=== PATIENT | female | born 1990 | race Caucasian/White ===

== ENCOUNTER 2020-05-14 15:48 | Inpatient (IN) | payer OTHER ==
[~2020-05-14] VITALS: Ht 167.6 cm; Wt 114.8 kg
[~2020-05-14 15:48] MED LIST: BENTYL 20MG TAB20 MG PO; NORCO 5-325 TA1 EACH PO; REGLAN10 MG PO
[2020-05-14 16:49] LABS: HEMOGLOBIN 10.4 gm/dl (12.3-15.3); RED BLOOD COUNT 3.59 M/UL (4.00-5.10); WHITE BLOOD COUNT 9.3 K/UL (4.5-11.0)
[2020-05-14] MEDS ORDERED: PRENATAL VITAM1 EAC3 PO (16:58)
[2020-05-14] MEDS ORDERED: PHENERGAN 25 MG25 M1 PO (16:59)
[2020-05-14 17:07] LABS: BUN/CREATININE RATIO 19 (0-10)
[2020-05-15] MEDS ORDERED: HYDROCODON-ACE1 EAC6 PO (09:23)
[2020-05-15] MEDS ORDERED: IBUPROFEN600 MG PO (09:23)
[2020-05-15] MEDS ORDERED: COLACE100 MG PO (09:23)
[2020-05-16 06:41] LABS: HEMOGLOBIN 9.6 gm/dl (12.3-15.3)
[2020-05-17] MEDS ORDERED: LEXAPRO10 MG PO (12:23)
== END 2020-05-17 15:57 | disposition home or self-care (01) | DRG 788 ==
LOC: GENOP 15:48 → OB 16:28
PROVIDERS: Obstetrics & Gynecology; ADMIT Obstetrics & Gynecology
PROC: 10D00Z1 Extraction of Products of Conception, Low, Open Approach (ICD-10-PCS; principal; 2020-05-15 08:56)
DX: O13.4 Gestational [pregnancy-induced] hypertension without significant proteinuria, complicating childbirth (principal); Z3A.37 37 weeks gestation of pregnancy; Z37.0 Single live birth; Z20.822 Contact with and (suspected) exposure to COVID-19
CPT/HCPCS: 80053; 81001; 82570; 82800; 84156; 84550; 85014; 85018; 85025; 90471; 90715; C9113; J0690; J1200; J1885; J2274; J2405; J2590; J3010; J7120; U0002

== ENCOUNTER 2020-05-21 16:17 | Emergency (ER) | payer OTHER ==
[~2020-05-21 16:17] MED LIST changes: +COLACE100 MG PO; +HYDROCODON-ACE1 EAC6 PO; +IBUPROFEN600 MG PO; +LEXAPRO10 MG PO; +PHENERGAN 25 MG25 M1 PO; +PRENATAL VITAM1 EAC3 PO
[2020-05-21 18:14] LABS: HEMOGLOBIN 10.6 gm/dl (12.3-15.3); RED BLOOD COUNT 3.67 M/UL (4.00-5.10); WHITE BLOOD COUNT 6.9 K/UL (4.5-11.0)
[2020-05-21 18:38] LABS: BUN/CREATININE RATIO 26 (0-10)
[2020-05-21] MEDS ORDERED: ZESTRIL20 MG PO (19:00)
== END 2020-05-21 19:30 | disposition home or self-care (01) ==
LOC: ER1 16:17
PROVIDERS: Family Medicine
DX: I10 Essential (primary) hypertension (principal); R60.0 Localized edema
CPT/HCPCS: 70450; 71045; 80053; 82550; 82553; 83874; 83880; 84484; 85025; 93005; 96374; 99284; J1940